=== PATIENT | male | born 1955 | race Caucasian/White ===

== ENCOUNTER → 2021-10-27 | Outpatient (CLI) | payer MEDICARE ==
--- NOTE | 2021-10-27 15:14 | Diagnostic Imaging Report ---
INDICATION: Right knee pain. TIME OF EXAM: 2:24 PM. FINDINGS: Five views of the right knee were obtained. There is some medial compartmental joint space narrowing. The articular surfaces are smooth. There is some marginal spurring present. No fracture, dislocation, or effusion is seen. IMPRESSION: Medial compartmental degenerative change. No acute bony abnormality is detected. Dictated by: Dictated on workstation # [id number]
== END ==
LOC: RAD FS 14:11
PROVIDERS: ATTEND Orthopaedic Surgery
DX: M17.11 Unilateral primary osteoarthritis, right knee (principal)
CPT/HCPCS: 73564

== ENCOUNTER → 2021-10-29 | Outpatient (CLI) | payer MEDICARE | LOC: ORTHO 14:32 | PROVIDERS: ATTEND Orthopaedic Surgery | DX: M17.11 Unilateral primary osteoarthritis, right knee (principal) ==